=== PATIENT | female | born 1955 | race Caucasian/White ===

== ENCOUNTER → 2022-02-24 | Outpatient (CLI) | payer MEDICARE ==
--- NOTE | 2022-02-24 17:49 | Diagnostic Imaging Report ---
HISTORY: Pain in the left heel TECHNIQUE: 2 views of the left calcaneus COMPARISON: None FINDINGS: No acute fracture is seen in the left calcaneus. Alignment appears normal. There are small plantar and posterior calcaneal enthesophytes. There is mild degenerative change in the tibiotalar joint. No cortical erosions are seen. IMPRESSION: 1. Calcaneal enthesopathy with no acute osseous abnormality seen. Dictated by: Dictated on workstation # [id number]
== END ==
LOC: ORTHO 11:05
PROVIDERS: ATTEND Orthopaedic Surgery
DX: M77.32 Calcaneal spur, left foot (principal)
CPT/HCPCS: 73650; G0463; 99203

== ENCOUNTER → 2022-03-03 | Outpatient (CLI) | payer MEDICARE ==
--- NOTE | 2022-03-03 15:38 | Diagnostic Imaging Report ---
INDICATION: Right hand pain. EXAMINATION: Right hand, 3 views. FINDINGS: There is good overall alignment. The articulating surfaces are smooth with good preservation of the joint space. The carpal bones appear normal. The radiocarpal joint shows good alignment. No evidence of osteonecrosis. No fractures. No periosteal reactive changes. IMPRESSION: Normal right hand. Dictated by: Dictated on workstation # [id number]
== END ==
LOC: ORTHO 10:45
PROVIDERS: ATTEND Orthopaedic Surgery
DX: M79.641 Pain in right hand (principal)
CPT/HCPCS: 20551; 73130; G0463

== ENCOUNTER → 2022-04-21 | Outpatient (CLI) | payer MEDICARE | LOC: ORTHO 10:45 | PROVIDERS: ATTEND Orthopaedic Surgery | DX: M20.011 Mallet finger of right finger(s) (principal) | CPT/HCPCS: 99213 ==

== ENCOUNTER → 2022-05-12 | Outpatient (CLI) | payer MEDICARE | LOC: ORTHO 13:23 | PROVIDERS: ATTEND Orthopaedic Surgery | DX: M20.011 Mallet finger of right finger(s) (principal) | CPT/HCPCS: 99213 ==

== ENCOUNTER → 2023-01-19 | Outpatient (CLI) | payer MEDICARE | LOC: ORTHO 09:35 | PROVIDERS: ATTEND Orthopaedic Surgery | DX: M65.331 Trigger finger, right middle finger (principal) | CPT/HCPCS: 20551 ==

== ENCOUNTER → 2023-02-10 | Outpatient (CLI) | payer MEDICARE ==
--- NOTE | 2023-02-10 11:23 | Diagnostic Imaging Report ---
Indication: Pain. 2 views were obtained FINDINGS: The alignment is normal. There are mild degenerative changes. There is no fracture or dislocation. Soft tissues are unremarkable. IMPRESSION: Mild degenerative changes otherwise unremarkable. Dictated by: Dictated on workstation # [id number]
== END ==
LOC: ORTHO 10:40
PROVIDERS: ATTEND Orthopaedic Surgery
DX: M16.11 Unilateral primary osteoarthritis, right hip (principal)
CPT/HCPCS: 73502; G0463; 99213